=== PATIENT | female | born 1970 | race African-American/Black ===

== ENCOUNTER 2018-01-15 11:11 | Emergency (ER) | payer OTHER ==
[~2018-01-15] VITALS: Ht 165.1 cm; Wt 63.5 kg
--- NOTE | ~2018-01-15 | EKG ---
[place] [address] [email or web address] [place] [address] ELECTROCARDIOGRAM REPORT Name: ASAVICENTE Room #: ANNMARIE Kwon#: [id number] Admission: 01/15/18 Attend Phys: Discharge: 01/15/18 Date of : 68 Report #: [id number] THIS REPORT FOR: //name// [facility] ED Test Date: 2018-01-15 Test Time: 11:12:50 Pat Name: VICENTE BRAY Department: Room: Gender: F Form Maker: ELISEO : 1970 Requested By: Christiano Redman Order Number: [id number] MD: Bobby Morrison Measurements Intervals [place] Rate: 58 P: 71 SC: 127 QRS: 42 QRSD: 66 T: 34 QT: 415 QTc: 408 Interpretive Statements Sinus bradycardia Otherwise no significant abnormality No previous ECG available for comparison Electronically Signed On 01-16-2018 7:28:02 CDT by Bobby Morrison [email or web address] <ELECTRONICALLY SIGNED> By: Bobby Morrison MD, [facility] 01/16/18 0728 1112 1112 Bobby Morrison MD, FACC /EPI
[~2018-01-15 11:11] MED LIST: LATUDA20 MG; TRAZODONE HCL50 MG; ZOVIRAX400 MG PO
[2018-01-15] MEDS ORDERED: RISPERDAL25 MG/2 ML IM (11:29)
[2018-01-15] MEDS ORDERED: DIVALPROEX SOD500 MG PO (11:30)
[2018-01-15 11:32] LABS: ABSOLUTE NEUTROPHILS 2.9 thou/uL (1.4-8.2); BASOPHILS 0.7 % (0.0-2.0); EOSINOPHILS 2.8 % (0.0-3.0); HEMATOCRIT 34.7 % (37.0-47.0); HEMOGLOBIN 11.8 gm/dL (12.0-15.0); LYMPHOCYTES 36.6 % (24.0-44.0); MCH 29.7 pg (26.0-34.0); MCV 87.6 fL (80.0-100.0); MONOCYTES 9.6 % (1.0-8.0); PLATELET COUNT 170 thou/uL (150-400); POLYS 50.3 % (36.0-66.0); RBC 3.96 mil/uL (4.20-5.00); RDW 12.5 % (10.5-14.5); WBC 5.8 thou/uL (4.0-11.0)
[2018-01-15 11:42] LABS: ANION GAP 7 mmol/L (7-16); BUN 14 mg/dL (7-18); CALCIUM 8.8 mg/dL (8.5-10.1); CHLORIDE 103 mmol/L (98-107); CO2 27 mmol/L (21-32); CREATININE 0.8 mg/dL (0.6-1.0); GLUCOSE 94 mg/dL (74-106); SODIUM 137 mmol/L (136-145)
[2018-01-15 11:51] LABS: ALBUMIN 3.5 g/dL (3.4-5.0); SGOT 16 U/L (15-37); SGPT 17 U/L (30-65); TOTAL BILIRUBIN 0.2 mg/dL (<0.1-1.0); TOTAL PROTEIN 7.1 g/dL (6.4-8.2); TROPONIN-I <0.06 ng/mL (<0.06)
[2018-01-15 14:28] VITALS: BP 120/73
== END 2018-01-15 14:33 | disposition home or self-care (01) ==
LOC: ER 11:11
PROVIDERS: Emergency Medicine
DX: R07.9 Chest pain, unspecified (principal); I10 Essential (primary) hypertension; E78.00 Pure hypercholesterolemia, unspecified; F31.9 Bipolar disorder, unspecified; F17.210 Nicotine dependence, cigarettes, uncomplicated; Z88.8 Allergy status to other drugs, medicaments and biological substances